=== PATIENT | female | born 1955 | race Caucasian/White ===

== ENCOUNTER → 2017-07-08 | Outpatient (CLI) | payer OTHER ==
[~2017-07-08] MED LIST: BUPR100CR PO; HYDR-3288 PO; IBUP-232 PO; PROM25TA10 PO; TOPR50TA PO
[2017-07-08 12:03] LABS: ALT (GPT) 125 U/L (10-53); ANION GAP 4 MEQ/L (5-15); AST (GOT) 59 U/L (15-37); BICARBONATE 29.8 MEQ/L (21.0-32.0); BLOOD UREA NITROGEN 9 MG/DL (7-18); CHLORIDE 105 MEQ/L (98-107); GLOMERULAR FILTRATION RATE 70 ML/MIN (>89); GLUCOSE,FASTING 103 MG/DL (74-99); POTASSIUM 4.4 MEQ/L (3.5-5.1); SODIUM (NA) 139 MEQ/L (136-145)
[2017-07-08 12:06] LABS: ALKALINE PHOSPHATASE 427 U/L (45-117); TOTAL BILIRUBIN ADULT 0.4 MG/DL (0.2-1.0)
[2017-07-08 12:18] LABS: CREATINE KINASE 55 U/L (26-192)
== END ==
LOC: CLAB 11:19
PROVIDERS: ATTEND Surgery Trauma Surgery
DX: R74.8 Abnormal levels of other serum enzymes (principal); I10 Essential (primary) hypertension
CPT/HCPCS: 36415; 80053; 82248; 82550

== ENCOUNTER → 2017-07-09 | Day surgery (SDC) | payer OTHER ==
[~2017-07-09] VITALS: Ht 161.3 cm; Wt 75.2 kg
[~2017-07-09] MED LIST changes: +*LABETALOL HCL 100 MG/20 ML VIAL PERIprocedural Use ONLY ONE; +*ONDANSETRON 4 MG VIAL PERIprocedural Use ONLY ONE; +*morphine SULFATE 8 MG/ML PERIprocedure ONLY ONE; +ACETAMINOPHEN 1000 MG/100 ML 100 ML IV SCH; +ACETAMINOPHEN/HYDROcodone 325 MG/5 MG TAB PO PRN; +BUPIVACAINE/EPINEPHRINE 0.25% 50 ML VIAL ONE; +CHLORHEXIDINE GLUCONATE 2 % 1 PACK (2 CLOTHS) TOPICAL PRN; +DEXAMETHASONE SOD PHOS 4 MG/ML VIAL IV ONE; +DO NOT ADM ANY ANTICOAGULANT DRUGS PRN; +ESMOLOL HCL 100 MG/10 ML VIAL IV ONE; +FAMOTIDINE 20 MG/2 ML VIAL ONE; +GLUCAGON 1 MG/ML VIAL ONE; +GLYCOPYRROLATE 1 MG/5 ML SYRINGE IV PUSH ONE; +INSULIN HUMAN REGULAR 1,000 UNITS/10 ML VIAL SQ PRN; +IOHEXOL 350 MG/ML 50 ML BTL (for RAD DIAG) OTHER ONE; +KETOROLAC TROMETHAMINE 30 MG/ML (IVP) VIAL IV PUSH ONE; +KETOROLAC TROMETHAMINE 30 MG/ML (IVP) VIAL IVP PRN; +LACTATED RINGER'S 1000 ML IV PRN; +METOPROLOL TARTRATE 25 MG TAB PO PRN; +MIDAZOLAM HCL 2 MG/2 ML VIAL ONE; +MORPHINE SULFATE 4 MG/ML INJ IV PUSH PRN; +NALOXONE HCL 0.4 MG/ML AMP IV PUSH PRN; +NEOSTIGMINE 3 MG/3 ML SYR IV ONE; +ONDANSETRON HCL 4 MG/2 ML VIAL IV PUSH ONE; +ONDANSETRON HCL 4 MG/2 ML VIAL IV PUSH PRN; +POVIDONE IODINE 5% (ANTISEPSIS KIT) 4 APPLICATIONS EACH NARE PRN; +PROPOFOL 200 MG/20 ML AMP IV ONE; +Post-op Orders (for Pharmacy) MISC XX ONE; +ROCURONIUM INJ 50 MG/5 ML SYRINGE IV PUSH ONE; +SODIUM CHLORID 0.9% 500 ML IV PRN; +SODIUM CHLORIDE 0.9% FLUSH 5 ML FLUSH IVF PRN; +SODIUM CHLORIDE 0.9% FLUSH 5 ML FLUSH IVF SCH; +VANCOMYCIN HCL 1000 MG ON-CALL/NS 250 ML IV SCH; +ceFAZolin 1,000 MG/NS 100 ML IV SCH; +diphenhydrAMINE HCL 25 MG CAP PO PRN
[2017-07-09 14:27] LABS: BASOPHIL % 0.6 % (0.0-2.0); EOSINOPHIL # 0.3 TH/MM3 (0-0.4); EOSINOPHIL % 4.1 % (0.0-4.0); HEMO FLAGS DIFF FINAL; LYMPH % 24.8 % (9.0-44.0); MEAN CELL VOLUME 87.3 FL (80.0-100.0); MEAN CORPUSCULAR HEMOGLOBIN 28.6 PG (27.0-34.0); MEAN CORPUSCULAR HGB CONC 32.7 % (32.0-36.0); MONO % 7.3 % (0.0-8.0); NEUT % 63.2 % (16.0-70.0); PLATELET COUNT 259 TH/MM3 (150-450); RED BLOOD COUNT 4.93 MIL/MM3 (4.00-5.30); RED CELL DISTRIBUTION WIDTH 13.3 % (11.6-17.2); WHITE BLOOD COUNT 7.9 TH/MM3 (4.0-11.0)
--- NOTE | 2017-07-09 16:20 | RADRPT ---
EXAM DATE/TIME: 07/09/2017 15:59 [place] COMPARISON: No previous studies available for comparison. INDICATIONS : Obstruction. FLUORO TIME: 0.24 minutes IMAGE COUNT: 1 MEDICAL HISTORY : Unobtainable. SURGICAL HISTORY : Unobtainable. ENCOUNTER: Initial ACUITY: 1 day PAIN SCORE: Non-responsive. LOCATION: Abdomen. PROCEDURE: CHOLANGIOGRAM, OPERATIVE 1. Intraoperative cholangiogram. In the operating room, the cystic duct stump was injected and radiographs obtained. The examination demonstrates distal tapering of the common bile which is otherwise normal in caliber. There are no intraluminal filling defects. Common duct is patent flow into the duodenum. CONCLUSION: No evidence of common duct stone. Josue Rush MD on July 09, 2017 at 16:17 Board Certified Radiologist. This report was verified electronically.
--- NOTE | 2017-07-09 17:01 | HHI.PR ---
cc: Fernando Youngblood MD Immediate Post Op Note Procedure Date: Jul 09, 2017 Pre Op Diagnosis: Cholecystitis Post Op Diagnosis: Same Surgeon: Fernando Youngblood Aging Room Operator(s): Helio Varela CFA Procedure: Laparoscopic cholecystectomy with IOC with intraoperative use of fluoroscopy Findings: No CBD filling defects Complications: None Specimen(s) removed: Gallbladder to pathology Estimated blood loss: 10 ml Anesthesia: General Drains: None IVF (900 ml) Patient to: PACU Patient Condition: Good Date/Time of Procedure: SEE SURGICAL CARE RECORD Fernando Youngblood MD Jul 09, 2017 17:01
[2017-07-09 17:55] VITALS: BP 138/83; PULSE 93; RESP 16; TEMP 98.5; O2SAT 94
--- NOTE | 2017-07-09 21:13 | MP ---
cc: MIMI SPRAGUE M.D. DATE OF SURGERY 07/09/2017 PROCEDURE Laparoscopic cholecystectomy with intraoperative cholangiogram with intraoperative use of fluoroscopy. Laparoscopic lysis of adhesions. PREOPERATIVE DIAGNOSIS Cholecystitis. POSTOPERATIVE DIAGNOSIS Cholecystitis with elevated LFTs. Adhesions right lateral abdominal wall. ANESTHESIA General endotracheal. SURGEON MD Ford. ESTIMATED BLOOD LOSS 10 ml. FLUIDS 900 ml crystalloid. COMPLICATIONS None. DRAINS None. SPECIMEN Gallbladder to pathology. FINDINGS Adhesions right upper quadrant on the lateral abdominal wall. The gallbladder did not appear acutely inflamed. PROCEDURE IN DETAIL The patient was taken to the operating room and placed on the operating table in the supine position. After adequate level of general endotracheal anesthesia was achieved the abdomen was prepped and draped in usual fashion. Time-out was taken confirming the correct patient, site and procedure to be performed. Skin and subcutaneous tissue was infiltrated with local anesthetic and incision made in the umbilicus and carried through the fascia sharply. The peritoneal cavity was directly visualized. A 12 mm balloon trocar was inserted and the balloon inflated. The abdomen was insufflated. The patient was placed in reverse Trendelenburg position. Three 5 mm trocars were then placed with the first to the right of the falciform ligament second and third in the right subcostal region. All entered the abdominal cavity under direct vision uneventfully. The fundus of the gallbladder was then grasped and retracted up and over the dome of the liver. The cystic duct infundibular junction and cystic artery were both circumferentially dissected. The cystic artery was doubly clipped proximally, singly clipped on the gallbladder side and divided. As the patient had elevated liver function tests, the cystic duct was singly clipped on the gallbladder side and a cystic ductotomy made. Cholangiogram was obtained with full strength contrast by inserting an Cameron cholangiocatheter and utilizing the fluoroscopic C-arm. Full strength contrast was used and the contrast was seen to flow freely into the duodenum with no filling defects in the common bile duct. There was some backfilling of the common hepatic duct and the right hepatic duct. No filling defects were noted. The cholangiocatheter was removed and the cystic duct doubly clipped distally and divided. The gallbladder was dissected off of the liver bed intact. The gallbladder was placed into an EndoCatch device and removed via the umbilical port while observing via the upper 5 mm trocar site. The gallbladder was passed off the table and the upper abdomen revisualized. Some adhesions were noted in the right upper quadrant on the lateral abdominal wall. These were taken down with electrocautery and counter traction. When this was completed, the liver bed, cystic artery stump and cystic duct stump were all seen to be clean and dry. Careful examination of the right upper quadrant revealed no other pathology. Insufflation was discontinued and the upper trocars were removed under direct vision. No bleeding was noted from the trocar sites after removal and during desufflation. The laparoscope and umbilical port were removed. The fascia was closed in the umbilicus with simple interrupted and [id number] 0 Vicryl suture. The remaining local anesthetic was injected into each of the trocar sites. The skin was closed at each trocar site with 4-0 Vicryl in an interrupted buried fashion. The wounds were dressed with Steri-Strips. The patient was extubated and taken back to the recovery room in stable condition. She tolerated the procedure well. MD OS Ramirez/ROCIO /6:20 PM /9:01 PM [facility]
== END | disposition home or self-care (01) ==
LOC: HSDC 13:07
PROVIDERS: ATTEND Surgery Trauma Surgery
DX: K81.1 Chronic cholecystitis (principal); I10 Essential (primary) hypertension
CPT/HCPCS: 00790; 47562; 74300; 85025; 88304; J0131; J0690; J2250; J2270; J2405; J3370; J7050; J7120; Q9967; J1100; J1610; J1885; J2710; J3010

== ENCOUNTER → 2017-10-30 | Outpatient (CLI) | payer OTHER ==
[~2017-10-30] MED LIST changes: -*LABETALOL HCL 100 MG/20 ML VIAL PERIprocedural Use ONLY ONE; -*ONDANSETRON 4 MG VIAL PERIprocedural Use ONLY ONE; -*morphine SULFATE 8 MG/ML PERIprocedure ONLY ONE; -ACETAMINOPHEN 1000 MG/100 ML 100 ML IV SCH; -ACETAMINOPHEN/HYDROcodone 325 MG/5 MG TAB PO PRN; -BUPIVACAINE/EPINEPHRINE 0.25% 50 ML VIAL ONE; -CHLORHEXIDINE GLUCONATE 2 % 1 PACK (2 CLOTHS) TOPICAL PRN; -DEXAMETHASONE SOD PHOS 4 MG/ML VIAL IV ONE; -DO NOT ADM ANY ANTICOAGULANT DRUGS PRN; -ESMOLOL HCL 100 MG/10 ML VIAL IV ONE; -FAMOTIDINE 20 MG/2 ML VIAL ONE; -GLUCAGON 1 MG/ML VIAL ONE; -GLYCOPYRROLATE 1 MG/5 ML SYRINGE IV PUSH ONE; -HYDR-3288 PO; -INSULIN HUMAN REGULAR 1,000 UNITS/10 ML VIAL SQ PRN; -IOHEXOL 350 MG/ML 50 ML BTL (for RAD DIAG) OTHER ONE; -KETOROLAC TROMETHAMINE 30 MG/ML (IVP) VIAL IV PUSH ONE; -KETOROLAC TROMETHAMINE 30 MG/ML (IVP) VIAL IVP PRN; -LACTATED RINGER'S 1000 ML IV PRN; +MELA5 PO; -METOPROLOL TARTRATE 25 MG TAB PO PRN; -MIDAZOLAM HCL 2 MG/2 ML VIAL ONE; -MORPHINE SULFATE 4 MG/ML INJ IV PUSH PRN; -NALOXONE HCL 0.4 MG/ML AMP IV PUSH PRN; -NEOSTIGMINE 3 MG/3 ML SYR IV ONE; -ONDANSETRON HCL 4 MG/2 ML VIAL IV PUSH ONE; -ONDANSETRON HCL 4 MG/2 ML VIAL IV PUSH PRN; -POVIDONE IODINE 5% (ANTISEPSIS KIT) 4 APPLICATIONS EACH NARE PRN; -PROM25TA10 PO; -PROPOFOL 200 MG/20 ML AMP IV ONE; -Post-op Orders (for Pharmacy) MISC XX ONE; -ROCURONIUM INJ 50 MG/5 ML SYRINGE IV PUSH ONE; -SODIUM CHLORID 0.9% 500 ML IV PRN; -SODIUM CHLORIDE 0.9% FLUSH 5 ML FLUSH IVF PRN; -SODIUM CHLORIDE 0.9% FLUSH 5 ML FLUSH IVF SCH; -VANCOMYCIN HCL 1000 MG ON-CALL/NS 250 ML IV SCH; -ceFAZolin 1,000 MG/NS 100 ML IV SCH; -diphenhydrAMINE HCL 25 MG CAP PO PRN
[2017-10-30 11:58] LABS: DIRECT BILIRUBIN ADULT 0.1 MG/DL (0.0-0.2); INDIRECT BILIRUBIN 0.2 MG/DL (0.0-0.8); TOTAL BILIRUBIN ADULT 0.3 MG/DL (0.2-1.0); TOTAL PROTEIN 7.4 GM/DL (6.4-8.2)
[2017-10-30 12:07] LABS: ALBUMIN 3.9 GM/DL (3.4-5.0)
== END ==
LOC: CLAB 11:13
PROVIDERS: ATTEND Family Medicine
DX: R74.0 Nonspecific elevation of levels of transaminase and lactic acid dehydrogenase [LDH] (principal)
CPT/HCPCS: 36415; 80076